=== PATIENT | female | born 1980 | race Caucasian/White ===

== ENCOUNTER 2021-09-01 03:26 | Emergency (ER) | payer SELFPAY ==
[~2021-09-01] VITALS: Ht 167.6 cm; Wt 142.3 kg
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
[2021-09-01 03:40] VITALS: BP 152/91
[2021-09-01] MEDS ORDERED: KETOROLAC 60 MG/2 ML VIAL. IM ONE (04:05)
[2021-09-01] MEDS: ALBUTEROL SULFATE 8GM INHALER. INH ONE (04:15)
[2021-09-01] MEDS: KETOROLAC 60 MG/2 ML VIAL. IM ONE (04:15)
[2021-09-01] MEDS ORDERED: ALBUTEROL SULFATE 8GM INHALER. ONE (04:18)
[2021-09-01 04:28] LABS: BARBITURATES NEG (NEG); BENZODIAZEPINES NEG (NEG); CANNABINOIDS NEG (NEG); COCAINE NEG (NEG); METHADONE NEG (NEG); OPIATES NEG (NEG); PHENCYCLIDINE NEG (NEG)
--- NOTE | 2021-09-01 04:29 | RAD ---
PA and lateral chest x-rays HISTORY: Chest wall pain. History of right flail chest surgical repair. FINDINGS: Heart size is normal. Mediastinal silhouette is normal. Slight elevation or eventration of the right anterior diaphragm. No pneumothorax, pulmonary opacities or pleural effusions. Fusion plate s along the right anterior ribs for treatment of flail chest. Bones are otherwise unremarkable. IMPRESSION: No acute process. Electronically signed by: August Hatfield MD (09/01/2021 4:26 AM) [facility]
[2021-09-01] MEDS: IV RINGERS SOLUTION,LACTATED 1,000 ML IV SCH (04:30)
[2021-09-01] MEDS ORDERED: CONTRAST GIVEN. MC PRN (04:30)
[2021-09-01 04:32] LABS: AMPHETAMINE/METHAMPHETAMINE POS (NEG)
[2021-09-01 04:35] LABS: BACTERIA,URINE FEW /HPF (0-FEW); CLARITY,URINE HAZY; COLOR,URINE YELLOW; GLUCOSE,URINE NEG (NEG); NITRITE,URINE NEG (NEG); RBC,URINE >40 /HPF (0-2); SQUAMOUS EPITHELIAL CELL,UR MOD /LPF; UROBILINOGEN,URINE 0.2 mg/dL (0.2 mg/dL)
[2021-09-01 04:36] LABS: TRICHOMONAS,URINE PRESENT
[2021-09-01] MEDS ORDERED: MORPHINE SULFATE 10 MG/ML SYRINGE. ONE (05:14)
[2021-09-01 05:21] LABS: BASO % 1 % (0-3); EOS # 0.6 x10^3/uL (0.0-0.7); EOS % 7 % (0-3); HEMATOCRIT 30.3 % (36.0-47.0); LYMPH % 23 % (24-48); MEAN CORPUSCULAR HEMOGLOBIN 19 pg (25-35); MEAN CORPUSCULAR HGB CONC 30 g/dL (31-37); MEAN CORPUSCULAR VOLUME 64 fL (79-100); MONO # 0.9 x10^3/uL (0.0-1.1); MONO % 10 % (0-9); NEUT % 59 % (31-73); PLATELET COUNT 382 x10^3/uL (140-400); RED BLOOD COUNT 4.73 x10^6/uL (3.50-5.40); RED CELL DISTRIBUTION WIDTH 20.7 % (11.5-14.5); WHITE BLOOD COUNT 8.6 x10^3/uL (4.0-11.0)
[2021-09-01] MEDS: MORPHINE SULFATE 10 MG/ML SYRINGE. SQ ONE (05:28)
--- NOTE | 2021-09-01 05:30 | EKG ---
[address] [address] Test Date: 2021-09-01 Test Time: 04:33:17 Pat Name: FELISA MORROW Department: Room: Gender: F Iron Bender: : 1980 Requested By: BARTOLOME ORTIZ Order Number: [id number] Reading MD: Puma Pierre Measurements Intervals [place] Rate: 90 P: 0 NV: 126 QRS: 25 QRSD: 92 T: 19 QT: 380 QTc: 469 Interpretive Statements SINUS RHYTHM NORMAL ECG RI6.01 No previous ECG available for comparison Electronically Signed On 09-01-2021 18:04:39 CDT by Puma Pierre
[2021-09-01 05:32] LABS: ANION GAP 4 (6-14); BLOOD UREA NITROGEN 13 mg/dL (7-20); CALCIUM 8.2 mg/dL (8.5-10.1); CARBON DIOXIDE 27 mmol/L (21-32); CHLORIDE 108 mmol/L (98-107); CREATININE 0.7 mg/dL (0.6-1.0); GFR 93.6; GLUCOSE 109 mg/dL (70-99); POTASSIUM 4.5 mmol/L (3.5-5.1); SODIUM 139 mmol/L (136-145)
[2021-09-01 05:40] LABS: PLT ESTIMATE ADEQUATE (ADEQUATE)
[2021-09-01 05:41] LABS: ANISOCYTOSIS MOD; HYPOCHROMIA SLIGHT; MICROCYTOSIS MOD
--- NOTE | 2021-09-01 05:41 | RAD ---
CT angiogram chest with contrast. CT abdomen and pelvis with contrast. PQRS statement: CT scans at this facility use dose reduction including either automated exposure cont rol, iterative reconstructions, and /or weight based radiation dosing via mA and kV modification when appropriate to reduce radiation dose to as low as reasonably achievable. HISTORY: Severe right chest pain. Right flank and back pain. Contrast: 100 mL Omnipaque 350 intravenous contrast with 3-D MIP reconstructions of the pulmonary art eries acquired. Chest findings: There is limited contrast density within the peripheral lobar pulmonary arteries limi ting assessment for smaller size lobar pulmonary emboli. In light of this no pulmonary artery emboli are evident. Main pulmonary artery is enlarged with a diameter of 3.5 cm may indicate changes of pulm onary hypertension. Ascending aorta diameter 3.2 cm. Aorta and esophagus are normal. Heart size is no rmal. No adenopathy in the chest. Very mild posterior right-sided pleural thickening versus a tiny mercedes bcentimeter volume of pleural fluid present. Fusion hardware along the right lateral fourth, fifth, s ixth and seventh ribs bridging healed rib fractures. There are several healed left rib fracture defor mities. No pneumothorax. No pleural effusions. Minimal subpleural parenchymal round atelectasis at th e right middle lobe underlying the rib fusion hardware. Abdomen findings: Lower thoracic and lower lumbar disc disease. Kidneys, adrenals, pancreas, spleen, liver and gallbladder are normal. No urinary calculi or hydronephrosis or perinephric edema. The appe ndix is normal. Moderate volume of stool. No obstruction or inflammation in GI tract. No abdominal fl uid. Pelvis findings: Lobulation of the uterine fundus may indicate the presence of small masses such as l eiomyomas. The ovaries, bladder, rectum and bones are unremarkable. Mild asymmetric size and hypodens ity right ovary image 147. No pelvic fluid. IMPRESSION: 1. No acute process in the chest, abdomen or pelvis. No pulmonary artery emboli. The appendix is norm al. 2. Fusion plates of the right lateral fourth through seventh ribs for treatment of flail chest. There is minimal pleural thickening or tiny volume of pleural fluid along the right lower chest. See above . 3. Lobulation of the uterine fundus may indicate the presence of small masses, most likely leiomyomas . Mild asymmetric hypodensity of the right ovary raising the possibility of an underlying cyst or fol licle. These findings could be further assessed with outpatient pelvic sonography. Electronically signed by: August Hatfield MD (09/01/2021 5:39 AM) [facility]
[2021-09-01 05:44] LABS: ALBUMIN 2.8 g/dL (3.4-5.0); ALK PHOS 108 U/L (46-116); ALT (SGPT) 24 U/L (14-59); AST (SGOT) 21 U/L (15-37); LIPASE 152 U/L (73-393); MAGNESIUM 2.1 mg/dL (1.8-2.4); TOTAL BILIRUBIN 0.1 mg/dL (0.2-1.0); TOTAL PROTEIN 6.7 g/dL (6.4-8.2)
[2021-09-01 05:47] LABS: DIRECT BILIRUBIN < 0.1 mg/dL (0.0-0.2)
[2021-09-01] MEDS ORDERED: HYDR-1179 PO (05:55)
[2021-09-01] MEDS: IOHEXOL 350 MG/ML 100 ML VIAL. IV ONE (06:04)
[2021-09-01] MEDS ORDERED: LIDO700A21 TP (06:55)
== END 2021-09-01 06:20 | disposition home or self-care (01) ==
LOC: ER 03:26
DX: R07.89 Other chest pain (principal); D50.9 Iron deficiency anemia, unspecified; E66.9 Obesity, unspecified; Z87.81 Personal history of (healed) traumatic fracture; Z86.16 Personal history of COVID-19; Z68.43 Body mass index [BMI] 50.0-59.9, adult; Z86.2 Personal history of diseases of the blood and blood-forming organs and certain disorders involving the immune mechanism
CPT/HCPCS: 36415; 71046; 71275; 74176; 80048; 80076; 80307; 81001; 81025; 82550; 83690; 83735; 83880; 84443; 84484; 85025; 85045; 85379; 85610; 85730; 87086; 93005; 94640; 96360; 96372; 99285; J1885; J2270; J7120; Q9967; 94664